=== PATIENT | female | born 1980 | race Hispanic/Latino ===

== ENCOUNTER 2017-12-22 15:20 | Emergency (ER) | payer BC ==
[2017-12-22] MEDS ORDERED: IBUPROFEN 400 MG TABLET ONE (15:38)
[2017-12-22] MEDS ORDERED: TETANUS/DIPHTHERIA TOXOID [ADULT] 0.5 ML VIAL IM ONE (15:40)
== END 2017-12-22 16:26 | disposition home or self-care (01) ==
LOC: EDH 15:20
DX: S91.342A Puncture wound with foreign body, left foot, initial encounter (principal); Z88.0 Allergy status to penicillin; W45.0XXA Nail entering through skin, initial encounter; Y93.89 Activity, other specified; Y92.098 Other place in other non-institutional residence as the place of occurrence of the external cause; Y99.8 Other external cause status
CPT/HCPCS: 73620; 90714